=== PATIENT | female | born 1970 | race Hispanic/Latino ===

== ENCOUNTER 2019-09-28 02:26 | Emergency (ER) | payer SELFPAY | END 2019-09-28 04:00 | disposition home or self-care (01) | LOC: ERS 02:26 | DX: F41.0 Panic disorder [episodic paroxysmal anxiety] (principal); I10 Essential (primary) hypertension | CPT/HCPCS: 99283 ==

== ENCOUNTER 2023-09-04 09:27 | Outpatient (CLI) | payer OTHER | END 2023-09-04 09:28 | disposition home or self-care (01) | LOC: ULT 09:27 | PROVIDERS: ATTEND Family Medicine | DX: R10.11 Right upper quadrant pain (principal); R10.31 Right lower quadrant pain; N83.201 Unspecified ovarian cyst, right side; K80.20 Calculus of gallbladder without cholecystitis without obstruction; K82.8 Other specified diseases of gallbladder | CPT/HCPCS: 76700; 76856 ==